=== PATIENT | male | born 1995 | race Caucasian/White ===

== ENCOUNTER 2019-10-21 22:57 | Emergency (ER) | payer OTHER ==
[2019-10-22] MEDS ORDERED: Rabies Immune Globulin/PF 1ML* 1 ML/300 UNITS VIAL IM ONE (02:56)
[2019-10-22] MEDS ORDERED: Rabies VIRUS VACCINE (RabAvert)* 2.5 UNITS VIAL IM ONE (02:56)
--- NOTE | 2019-10-22 03:11 | ED ---
Bite Injury/Animal - HPI Summary HPI Summary: Pt is a 23 y/o M presenting to the ED with a chief complaint of a raccoon bite. He states there is a raccoon that his friend caught that is currently in a trap , inside his house. he was trying to let it out in the wild and feed it, and he got to close and it bit his R index finger. The raccoon is still in the house. He denies fever. He states his tetanus is up-to-date at this time. He did wash his hand with soap and water and put alcohol on the wounds. Never had a rabies vaccine previously. - History of Current Complaint Chief Complaint: EDAnimalBite Stated Complaint: ANIMAL BITE PER PT Time Seen by Provider: 10/22/19 02:20 Hx Obtained From: Patient Onset of Injury: Happened hours ago, Still Present Type of Bite: Wild Animal Has Animal Been Immunized?: No Severity Initially: Mild Severity Currently: None Pain Intensity: 0 Pain Scale Used: 0-10 Numeric Character: Abrasion/Laceration Aggravating Factor(s): Nothing Alleviating Factor(s): Nothing Associated Signs And Symptoms: Positive: Negative Animal Available for Observation: No - Allergies/Home Medications Allergies/Adverse Reactions: Allergies Allergy/AdvReac Type Severity Reaction Status Date / Time No Known Allergies Allergy Verified 10/21/19 23:04 PMH/Surg Hx/FS Hx/Imm Hx Previously Healthy: Yes Endocrine/Hematology History: Denies: Hx Diabetes Cardiovascular History: Denies: Hx Hypertension - Immunization History Immunizations Up to Date: Yes Infectious Disease History: No Infectious Disease History: Denies: Traveled Outside the [place] in Last 30 Days - Family History Known Family History: Negative: Diabetes - Social History Occupation: Student Lives: Dormitory/Roommates Alcohol Use: Rare Hx Substance Use: Yes Substance Use Type: Reports: Marijuana Hx Tobacco Use: No Smoking Status (MU): Never Smoked Tobacco Review of Systems Negative: Fever Positive: Other - abrasions to R index finger All Other Systems Reviewed And Are Negative: Yes Physical Exam - Summary Physical Exam Summary: General: Well-developed, Well-nourished female. No acute distress. Neck: Soft, FROM, (-) lymphadenopathy, (-) thyromegaly, (-) JVD. Cardiovascular: Normal sinus rhythm, (-) murmur. Lungs: Clear to auscultation bilaterally (-) wheezes, (-) rales, (-) rhonchi. Abdomen: Soft, non-tender, non-distended, (-) organomegaly, normal bowel sounds. Back: (-) CVA tenderness Extremities: No edema. On palmar side of R distal index finger, he has an 8mm laceration. On the opposite side, there are two puncture wounds in the distal finger. No active bleeding. Skin: Warm, dry, (-) rash. Neuro: Alert and oriented x3, moves all extremities equally. No ataxia. No gait disturbance. No sensory deficit. Normal strength, normal sensation. Psychiatric: Mood normal, affect normal. Triage Information Reviewed: Yes Vital Signs On Initial Exam: Initial Vitals Temp Pulse Resp BP Pulse Ox 98.6 F 88 16 160/96 98 10/21/19 22:59 10/21/19 22:59 10/21/19 22:59 10/21/19 22:59 10/21/19 22:59 Vital Signs Reviewed: Yes Procedures - Sedation Patient Received Moderate/Deep Sedation with Procedure: No Diagnostics - Vital Signs Vital Signs Temp Pulse Resp BP Pulse Ox 10/22/19 01:16 98.6 F 70 16 119/63 99 10/21/19 22:59 98.6 F 88 16 160/96 98 - Laboratory Lab Statement: Any lab studies that have been ordered have been reviewed, and results considered in the medical decision making process. Bite Injury Course/Dx - Course Course Of Treatment: 23-year-old male presents with a raccoon bite. He states earlier tonight he was trying to feed a raccoon and set it free. It was in a trap at his friend's house. The raccoon bit him and escaped. He states it still in the house somewhere. Discussed risk of rabies with the patient. I recommends the rabies vaccine as well as immunoglobulin. I explained that the immunoglobulin is a 4 shot series. He would like to start the series at this time. Will follow-up with Jaun if possible for further injections. Patient was advised that he could potentially avoid the immunoglobulin shots by keeping the raccoon for 10 days and observing her for any signs of rabies. Patient states they were planning on sending the raccoon cream before then. On exam he has 3 open wounds on his right first finger distally. The area was cleaned and immunoglobulin was injected directly into the wounds. The remaining amount was injected in the right deltoid. Patient discharged to home. Follow-up with [facility], [facility], here or any PCP office on day 4, 7, 14. - Diagnoses Provider Diagnosis: Raccoon bite Discharge ED - Sign-Out/Discharge Documenting (check all that apply): Patient Departure - Discharge Plan Condition: Stable Disposition: HOME Referrals: [facility] - Jaun HYLTON [Primary Care Provider] - Additional Instructions: Your next immunoglobulin shot is due on the 4th, 7th, and 14th day, with today ( the ) being day #1. Follow up with [facility] in the morning to ensure that they can do the shots there, or get them done at the [facility]. Return to the emergency department with any new or worsening symptoms. - Billing Disposition and Condition Condition: STABLE Disposition: Home - Attestation Statements Document Initiated by Carmel: Yes Documenting Scribe: Angie Baker Provider For Whom Carmel is Documenting (Include Credential): Sylvia Montalvo MD. Scribe Attestation: Angie Tavera, scribed for Sylvia Montalvo MD. on 10/22/19 at 0457. Scribe Documentation Reviewed: Yes Provider Attestation: The documentation as recorded by the Angie li accurately reflects the service I personally performed and the decisions made by , Sylvia Montalvo MD. Status of Scribe Document: Viewed
[2019-10-22 04:43] VITALS: BP 139/77
== END 2019-10-22 04:27 | disposition home or self-care (01) ==
LOC: ED 22:57
DX: S61.250A Open bite of right index finger without damage to nail, initial encounter (principal); W55.51XA Bitten by raccoon, initial encounter; Y92.9 Unspecified place or not applicable
CPT/HCPCS: 90375; 90471; 90675; 99281

== ENCOUNTER 2021-12-01 22:57 | Observation (INO) ==
[2021-12-02] MEDS ORDERED: NS 0.9% 1000 ml BAG 1,000 ML IV ONE (00:32)
[2021-12-02] MEDS ORDERED: HYDROcodone/ACET. 7.5/325 LIQ 15 ML UDC PO ONE (00:35)
[2021-12-02 00:55] LABS: Hematocrit 28 % (42-52); Hemoglobin 9.6 g/dL (14.0-18.0); Mean Corpuscular HGB Conc 35 g/dL (31-36); Mean Corpuscular Hemoglobin 30 pg (27-31); Mean Corpuscular Volume 87 fL (80-94); Mean Platelet Volume 9.2 fL (7.4-10.4); Platelet Count 290 10^3/uL (150-450); Red Blood Count 3.22 10^6 /uL (4.18-5.48); Red Cell Distribution Width 14 % (10-15); White Blood Count 9.7 10^3/uL (3.5-10.8)
[2021-12-02 01:54] LABS: Albumin 4.1 g/dL (3.2-5.2); Albumin/Globulin Ratio 1.6 (1-3); Calcium 9.7 mg/dL (8.6-10.3); Globulin 2.5 g/dL (2-4); Total Bilirubin 0.3 mg/dL (0.2-1.0); Total Protein 6.6 g/dL (6.4-8.9); eGFR CKD-EPI 120.7 (>60)
[2021-12-02 02:03] LABS: ABS Eosinophils 0.1 10^3/ul (0-0.6); ABS Lymphocytes 3.3 10^3/ul (1.0-4.8); ABS Monocytes 0.9 10^3/ul (0-0.8); ABS Neutrophils 5.4 10^3/ul (1.5-7.7); Eosinophil % 1.2 %; Lymphocyte % 33.6 %; Nucleated Red Blood Cells % 0.1
[2021-12-02] MEDS ORDERED: NS 0.9% 1000 ml BAG 1,000 ML IV SCH (03:00)
[2021-12-02] MEDS ORDERED: Ondansetron ODT 4 mg TAB 4 MG TAB SL PRN (03:01)
[2021-12-02 03:41] LABS: Magnesium 2.1 mg/dL (1.9-2.7)
[2021-12-02 03:57] LABS: TSH Ultra Thyroid Stim Horm 0.71 mcIU/mL (0.34-5.60)
[2021-12-02] MEDS: HYDROcodone/ACET. 7.5/325 LIQ 15 ML UDC PO PRN ×3 (05:07→17:02)
[2021-12-02 09:37] LABS: ABS Eosinophils 0.1 10^3/ul (0-0.6); ABS Lymphocytes 2.8 10^3/ul (1.0-4.8); ABS Monocytes 0.6 10^3/ul (0-0.8); ABS Neutrophils 3.1 10^3/ul (1.5-7.7); Eosinophil % 1.8 %; Hematocrit 27 % (42-52); Hemoglobin 9.2 g/dL (14.0-18.0); Lymphocyte % 42.7 %; Mean Corpuscular HGB Conc 34 g/dL (31-36); Mean Corpuscular Hemoglobin 30 pg (27-31); Mean Corpuscular Volume 88 fL (80-94); Mean Platelet Volume 9.1 fL (7.4-10.4); Nucleated Red Blood Cells % 0.3; Platelet Count 236 10^3/uL (150-450); Red Blood Count 3.09 10^6 /uL (4.18-5.48); Red Cell Distribution Width 14 % (10-15); White Blood Count 6.6 10^3/uL (3.5-10.8)
[2021-12-02 10:17] LABS: Calcium 8.4 mg/dL (8.6-10.3); Magnesium 2.1 mg/dL (1.9-2.7); Potassium 3.8 mmol/L (3.5-5.0); eGFR CKD-EPI 124.9 (>60)
[2021-12-02 15:33] VITALS: BP 121/57
== END 2021-12-02 17:25 | disposition home or self-care (01) ==
LOC: ED 22:57 → EDHOLD 22:57 → MEDTELE 12-02 10:17
PROVIDERS: ADMIT Hospitalist; ATTEND Internal Medicine